=== PATIENT | female | born 2000 | race African-American/Black ===

== ENCOUNTER 2024-10-04 13:10 | Emergency (ER) | payer OTHER ==
[~2024-10-04] VITALS: Ht 165.1 cm; Wt 82.0 kg
[2024-10-04 13:12] VITALS: PULSE 88; O2SAT 99
[2024-10-04 13:15] VITALS: BP 165/110; RESP 16; TEMP 98.6; O2SAT 98
[2024-10-04 15:12] LABS: HCG SCREEN NEGATIVE
[2024-10-04] MEDS: CEFTRIAXONE SODIUM 500MG VIAL IM ONE (15:25)
[2024-10-04] MEDS ORDERED: DOXY100C5 MT (15:47)
[2024-10-07 06:09] LABS: CHLAMYDIA TRACHOMATIS NAA Negative (Negative); NEISSERIA GONORRHOEAE NAA Negative (Negative)
== END 2024-10-04 16:06 | disposition home or self-care (01) ==
LOC: ER 13:10
DX: Z32.02 Encounter for pregnancy test, result negative (principal); Z20.2 Contact with and (suspected) exposure to infections with a predominantly sexual mode of transmission
CPT/HCPCS: 99283; 87491; 87591; 84703; 96372; J0696

== ENCOUNTER 2025-01-23 02:31 | Emergency (ER) | payer OTHER ==
[~2025-01-23] VITALS: Ht 170.2 cm; Wt 83.0 kg
[~2025-01-23 02:31] MED LIST: DOXY100C5 MT
[2025-01-23 02:32] VITALS: TEMP 37.2; O2SAT 99
[2025-01-23 03:40] LABS: BASOPHILS % 0.5 % (0.0-2.0); DIFFERENTIAL COMMENT 0; HEMATOCRIT. 34.3 % (36.0-48.0); HEMOGLOBIN. 11.3 g/dL (12.0-16.0); LYMPHOCYTES % 20.9 % (20.0-50.0); MEAN CORPUSCULAR HEMOGLOBIN 33.9 pg (28.0-32.0); MEAN CORPUSCULAR HGB CONC 33.1 g/dL (31.0-37.0); MEAN CORPUSCULAR VOLUME 102.4 fL (81.0-99.0); MONOCYTES % 9.9 % (2.0-8.0); NEUTROPHILS % 65.7 % (40.0-76.0); PLATELET 261 x1000/uL (130-400); RED BLOOD CELL COUNT 3.35 mill/uL (4.2-5.4); RED CELL DISTRIBUTION WIDTH 13.9 % (11.6-14.6); WHITE BLOOD COUNT 8.1 x1000/uL (4.5-11.0)
[2025-01-23 03:47] LABS: POTASSIUM 5.1 mEq/L (3.5-5.1)
[2025-01-23 03:57] VITALS: BP 157/123; PULSE 81; RESP 15; O2SAT 99
[2025-01-23 04:36] LABS: HCG SCREEN NEGATIVE
[2025-01-23] MEDS ORDERED: TRAMADOL 50MG TABLET PO ONE (04:45)
[2025-01-23 04:46] LABS: CREATININE 14.8 mg/dL (0.6-1.0)
[2025-01-23] MEDS: TRAMADOL 50MG TABLET PO NR (04:53)
[2025-01-23] MEDS ORDERED: TRAM-534 MT (05:19)
[2025-01-23 06:12] LABS: CLARITY URINE CLOUDY (CLEAR); COLOR URINE RED (YELLOW); GLUCOSE URINE TRACE (NEGATIVE); KETONES URINE NEGATIVE (NEGATIVE); LEUKOCYTE ESTERASE URINE 1+ (NEGATIVE); NITRITE URINE POSITIVE (NEGATIVE); OCCULT BLOOD URINE 3+ (NEGATIVE); PROTEIN URINE 4+ (NEGATIVE); SPECIFIC GRAVITY URINE 1.043 (1.005-1.030); UROBILINOGEN URINE 0.2 E.U./dL (0.2-1.0)
[2025-01-23 06:39] LABS: BACTERIA URINE NONE SEEN; RBC URINE TNTC /hpf (0-2); SQUAMOUS EPITHELIAL CELL URINE NONE SEEN /lpf (RARE/1+); WBC URINE 0-2 /hpf (0-2)
== END 2025-01-23 07:00 | disposition home or self-care (01) ==
LOC: ER 02:37
DX: N83.201 Unspecified ovarian cyst, right side (principal); I16.0 Hypertensive urgency; Z99.2 Dependence on renal dialysis; N18.6 End stage renal disease
CPT/HCPCS: 36415; 76856; 80048; 81003; 84703; 85025; 99284